=== PATIENT | female | born 1955 | race Two or more races ===

== ENCOUNTER 2016-11-03 05:42 | Emergency (ER) | payer OTHER ==
[~2016-11-03] VITALS: Ht 149.9 cm; Wt 65.8 kg
[~2016-11-03 05:42] MED LIST: ASPI-605 PO; CARV12.52 PO; CETI1SOL48 PO; CHOL100044 PO; FAMO20TA8 PO; GLIM1TAB2 PO; LISI10TA5 PO; METF10002 PO; NITR0.4T6 SL; SIMV40TA5 PO; TICA90TA PO
[2016-11-03 05:59] VITALS: BP 158/87
[2016-11-03] MEDS ORDERED: HYDROCODONE/APAP 5/325MG 1 EACH TABLET PO ONE (06:30)
[2016-11-03] MEDS ORDERED: HYDROCODONE/APAP 5/325MG 1 EACH TABLET ONE (06:31)
== END 2016-11-03 07:29 | disposition home or self-care (01) ==
LOC: ER 05:48
DX: M79.602 Pain in left arm (principal); E11.9 Type 2 diabetes mellitus without complications; E78.00 Pure hypercholesterolemia, unspecified; I10 Essential (primary) hypertension; Z79.82 Long term (current) use of aspirin; Z95.5 Presence of coronary angioplasty implant and graft; Z95.9 Presence of cardiac and vascular implant and graft, unspecified
CPT/HCPCS: 36415; 84484; 93005 ×2; 99285; A4606; Z7610